=== PATIENT | male | born 1955 | race Caucasian/White ===

== ENCOUNTER 2024-05-07 20:22 | Observation (INO) | payer OTHER ==
[~2024-05-07] VITALS: Ht 177.8 cm; Wt 86.2 kg
[2024-05-07 20:40] LABS: BASOPHILS # (AUTO) 0.17 K/uL (0.00-0.20); BASOPHILS % (AUTO) 1.3 % (0.0-5.0); EOSINOPHILS # (AUTO) 0.53 K/uL (0.00-0.70); EOSINOPHILS % (AUTO) 3.9 % (0.0-8.0); HEMATOCRIT 49.3 % (42-54); IMMATURE GRANULOCYTE ABSOLUTE 0.05 K/uL (0-1); LYMPHOCYTES % (AUTO) 22.3 % (21.0-51.0); MEAN CORPUSCULAR HEMOGLOBIN 30.1 pg (27.0-33.0); MEAN CORPUSCULAR HGB CONC 33.3 g/dL (32.0-36.0); MEAN CORPUSCULAR VOLUME 90.5 fL (79-99); MONOCYTES # (AUTO) 1.2 K/uL (0.1-1.0); MONOCYTES % (AUTO) 8.6 % (3.0-13.0); NEUTROPHILS # (AUTO) 8.6 K/uL (1.8-7.7); NEUTROPHILS % (AUTO) 63.5 % (40.0-77.0); PLATELET COUNT (AUTO) 288 K/uL (130-400); RED BLOOD CELL COUNT(AUTO) 5.45 MIL/uL (4.50-6.20); RED CELL DISTRIBUTION WIDTH 14.2 % (11.0-15.5); WHITE BLOOD COUNT (AUTO) 13.5 K/uL (4.8-10.8)
[2024-05-07 20:50] LABS: CREATININE 1.2 mg/dL (0.5-1.3); POTASSIUM 3.6 mmol/L (3.5-5.1)
[2024-05-07 20:52] LABS: INR 1.01 (0.85-1.15); PROTHROMBIN TIME 10.9 SEC (9.6-11.6)
[2024-05-07 20:53] LABS: PARTIAL THROMBOPLASTIN TIME 29.9 SEC (26.3-35.5)
[2024-05-07 21:11] LABS: B-TYPE NATRIURETIC PEPTIDE 11 pg/mL (0-100)
--- NOTE | 2024-05-07 21:15 | ERN ---
General Chief Complaint: Chest Pain Stated Complaint: CHEST PAIN Time Seen by MD: 20:24 History of Present Illness Initial Comments Mr Locke is a 68-year-old male significant past medical history of tobacco abuse, hyperlipidemia, essential hypertension who comes in today with a chief complaint of chest pain. Patient reports the chest pain is over the center of his chest and goes down his left arm. Patient states that he has not noticed that activity or rest change the intensity of his pain. Patient states that when he sits up he feels slightly better. Allergies: Coded Allergies: No Known Drug Allergies (Unverified Allergy, Unknown, 05/07/24) Past Medical History Past Medical History: Other Medical History Other: PINCHED NERVE IN NECK Past Surgical History: None ROS Dictation Constitutional: Negative for fever,chills, and weight loss Eyes: Negative for injury, pain,redness, and discharge ENT: Negative for injury,pain or swelling Cardiovascular: Positive for chest pain Respiratory: Negative for shortness of breath, cough, and wheezing, Abdomen/GI: Negative for abdominal pain, nausea, vomiting, diarrhea, and constipation Back: Negative for injury and pain : Negative for injury, bleeding and discharge MS/Extremity: Negative for injury and deformity Skin: Negative for rash, and discoloration Neuro: Negative for headache, weakness, numbness, tingling, and seizure Psych: Negative for suicide ideation, homicidal ideation, and hallucinations Physical Exam Physical Exam Dictation General: awake, alert, NAD Head/Face: Normocephalic, atraumatic Eyes: PERRL, EOMI, vision at baseline ENT: oral cavity clear, Neck: Trachea midline, supple Cardiovascular: RRR, normal S1/S2, No MRGs, no JVD Respiratory: CTAB, no respiratory distress, No rales or wheezes Abdomen: Soft, non-tender, non-distended, normal bowel sounds Skin: Warm, dry, normal turgor, no rash MS/Extremity: Pulses equal, no cyanosis, neurovascular intact, FROM Neuro: COAx4, GCS 15, strength 5/5 Results Laboratory and Microbiology Lab and Micro Result Laboratory Tests Test 05/07/24 20:32 05/07/24 21:33 White Blood Count 13.5 K/uL (4.8-10.8) H Red Blood Count 5.45 MIL/uL (4.50-6.20) Hemoglobin 16.4 g/dL (14.0-18.0) Hematocrit 49.3 % (42-54) Mean Corpuscular Volume 90.5 fL (79-99) Mean Corpuscular Hemoglobin 30.1 pg (27.0-33.0) Mean Corpuscular Hemoglobin Concent 33.3 g/dL (32.0-36.0) Red Cell Distribution Width 14.2 % (11.0-15.5) Platelet Count 288 K/uL (130-400) Mean Platelet Volume 9.1 fL (7.5-10.5) Immature Granulocyte % (Auto) 0.4 % (0-1) Neutrophils (%) (Auto) 63.5 % (40.0-77.0) Lymphocytes (%) (Auto) 22.3 % (21.0-51.0) Monocytes (%) (Auto) 8.6 % (3.0-13.0) Eosinophils (%) (Auto) 3.9 % (0.0-8.0) Basophils (%) (Auto) 1.3 % (0.0-5.0) Neutrophils # (Auto) 8.6 K/uL (1.8-7.7) H Lymphocytes # (Auto) 3.0 K/uL (1.0-4.8) Monocytes # (Auto) 1.2 K/uL (0.1-1.0) H Eosinophils # (Auto) 0.53 K/uL (0.00-0.70) Basophils # (Auto) 0.17 K/uL (0.00-0.20) Absolute Immature Granulocyte (auto 0.05 K/uL (0-1) Nucleated Red Blood Cells 0.0 % (0.0-0.19) Prothrombin Time 10.9 SEC (9.6-11.6) Prothromb Time International Ratio 1.01 (0.85-1.15) Activated Partial Thromboplast Time 29.9 SEC (26.3-35.5) Sodium Level 136 mmol/L (136-145) Potassium Level 3.6 mmol/L (3.5-5.1) Chloride Level 102 mmol/L (101-111) Carbon Dioxide Level 28 mmol/L (21-32) Blood Urea Nitrogen 12 mg/dL (7-18) Creatinine 1.2 mg/dL (0.5-1.3) Glomerular Filtration Rate Calc 69 mL/min (>90) Random Glucose 124 mg/dL (70-105) H Total Calcium 9.0 mg/dL (8.5-10.1) Troponin I High Sensitivity 15 ng/L (4-75) B-Type Natriuretic Peptide 11 pg/mL (0-100) Troponin I < 0.05 ng/mL (0.00-0.05) MDM Patient will be admitted for chest pain rule out. Patient is an observation MDM: Differential diagnosis: Chest pain Rationale: Tests considered and ordered secondary to shared decision making include: labs, ECG and radiology Previous outside records reviewed: Old ER visits. Risk of complication and/or morbidity or mortality of patient management: None Medications-Per medication reconciliation Need for hospitalization: Patient does meet criteria for hospitalization. Need for emergency major/minor surgery: No There are no social concerns with this patient. Prescription drug management Prescriptions will include symptomatic care Patient's prior external medical records from other ER visits were reviewed by me as indicated. Prior testing and results from previous visits were reviewed. Prior tests were taken into account with medical decision making and resource utilization, independent historian/historians were used to obtain complete medical history. I independently interpreted the test that were performed, results were reviewed by me and considered findings on radiology if ordered. Medical management and examination interpretation discussions were had by me with other qualified healthcare professionals as indicated for the patient's care. ED Course Orders Procedure Category Date Status Time Cbc With Differential LAB 05/07/24 Complete 20:24 Basic Metabolic Panel LAB 05/07/24 Complete 20:24 B-Type Natriuretic LAB 05/07/24 Complete Peptide 20:24 Troponin I High LAB 05/07/24 Complete Sensitivity 20:24 12 Lead Ekg Tracing- EKG 05/07/24 Logged Technical 20:24 Chest 1vw RAD 05/07/24 Taken 20:24 Pt And Ptt LAB 05/07/24 Complete 20:24 Nitroglycerin 1gm PHA 05/07/24 Complete Oint (Nitroglycerin 1g 21:30 Morphine 4mg Syg PHA 05/07/24 Complete (Morphine 4mg Syg) 21:30 Aspirin 325mg Tab PHA 05/07/24 Complete (Aspirin 325mg Tab) 21:30 Troponin Poc Order LAB 05/07/24 Complete Only 21:06 Current Medications Medications (Trade) Dose Ordered Sig/Kenzie Route PRN Reason Start Time Stop Time Status Last Admin Dose Admin Aspirin (Aspirin 325mg Tab) 325 mg ONCE ONCE PO 05/07/24 21:30 05/07/24 21:31 DC 05/07/24 21:16 Morphine Sulfate (morPHINE 4MG SYG) 4 mg ONCE ONCE IVP 05/07/24 21:30 05/07/24 21:31 DC 05/07/24 21:16 Nitroglycerin (Nitroglycerin 1gm Oint) 1 inch ONCE ONCE TD 05/07/24 21:30 05/07/24 21:31 DC 05/07/24 21:16 Vital Signs Date Time Temp Pulse Resp B/P (MAP) Pulse Ox O2 Delivery O2 Flow Rate FiO2 05/07/24 20:39 98.4 82 19 162/87 97 Room Air* 0 21 DX & DISP Disposition: Inpatient Departure Impression: Primary Impression: Chest pain Condition: Stable Referrals: JEWELL JERRY MD (PCP) BRIAN LEE MD May 07, 2024 21:14
[2024-05-07] MEDS: morPHINE 4 MG SYG IVP ONE (21:16)
[2024-05-07] MEDS: ASPIRIN 325MG TAB PO ONE (21:16)
[2024-05-07] MEDS: NITROGLYCERIN 1GM OINT 1 INCH/1GM TD ONE (21:16)
[2024-05-07] MEDS ORDERED: LAbetaLOL 20MG SYG IV PRN (22:30)
[2024-05-07] MEDS ORDERED: ALBUTEROL 0.083% 2.5 MG/3 ML INH IH PRN (22:30)
[2024-05-07] MEDS ORDERED: TEMAZepam 15 MG CAPSULE PO PRN (22:30)
[2024-05-07] MEDS ORDERED: cloNIDine HCL 0.1 MG TABLET PO PRN (22:30)
[2024-05-07] MEDS ORDERED: LACTULOSE 20 GM/30 ML UDCUP PO PRN (22:30)
[2024-05-07] MEDS ORDERED: MELATONIN 5 MG TABLET PO PRN (22:30)
[2024-05-07] MEDS ORDERED: morPHINE 2 MG SYG IVP PRN (22:30)
--- NOTE | 2024-05-07 22:40 | NUR ---
PATIENT REPORTS HE DOES NOT TAKE ANY PRESCRIBED MEDICATIONS
[2024-05-07] MEDS: MAG/ALUM/SIMETH 30 ML UDCUP PO ONE (22:47)
[2024-05-07 23:30] VITALS: BP 122/66; PULSE 64; RESP 20; TEMP 97.8
[2024-05-07 23:37] VITALS: PULSE 85; RESP 20; O2SAT 96
--- NOTE | 2024-05-08 | NUR ---
ADMIT/REFUSAL Patient admitted from ER, vitals stable. States he lives at home with daughter. Educated on importance of smoking cessation, patient responded " I already said Wanda been smoking for 54 years and Im not quitting! Stop asking me the same damn questions!" Refused to wear yellow nonslip socks. Refused to put on hospital gown. Security called to picking supervisor cigarettes and neighborhood worker, patient only gave neighborhood worker to security. Call light within reach. Fall precautions in place.
--- NOTE | 2024-05-08 | NUR ---
PAGE Paged Genny Hanna Np regarding Critical D Dimer [id number]. Pending call back.
--- NOTE | 2024-05-08 | NUR ---
NURSING OBSERVATION/ BEHAVIOR SPOKE WITH PT REGARDING MANAGER DEVELOPMENT AND CIGARETTES, INFORMED IT IS A SAFETY ISSUE, PT RESPONDED " HERE IS THE FUCKING MANAGER DEVELOPMENT" AND GAVE ME THE MANAGER DEVELOPMENT AND LEFT ROOM. MANAGER DEVELOPMENT WAS HANDED TO SECURITY.
[2024-05-08 00:45] VITALS: O2SAT 98
--- NOTE | 2024-05-08 01:05 | NUR ---
per FLORECITA Batista pt refusing exam until AM//will let ordering physician know
--- NOTE | 2024-05-08 01:15 | NUR ---
REFUSAL Patient refusing STAT CT chest PE protocol due to critical D Dimer , explained to patient risks of delaying treatment. Continues to refuse. Paged Dez AhnTree Worker to notify of patient refusing STAT CT chest until the morning.
[2024-05-08 01:34] LABS: AMPHET/METH SCREEN,URINE NEGATIVE (NEGATIVE); BARBITURATE SCREEN, URINE NEGATIVE (NEGATIVE); BENZODIAZEPINES SCREEN,URINE NEGATIVE (NEGATIVE); CANNABINOID SCREEN,URINE NEGATIVE (NEGATIVE); COCAINE SCREEN,URINE NEGATIVE (NEGATIVE); OPIATE SCREEN,URINE NEGATIVE (NEGATIVE); PHENCYCLIDINE SCREEN,URINE NEGATIVE (NEGATIVE)
[2024-05-08 02:48] LABS: BASOPHILS # (AUTO) 0.16 K/uL (0.00-0.20); BASOPHILS % (AUTO) 1.1 % (0.0-5.0); EOSINOPHILS # (AUTO) 0.52 K/uL (0.00-0.70); EOSINOPHILS % (AUTO) 3.6 % (0.0-8.0); HEMATOCRIT 46.1 % (42-54); IMMATURE GRANULOCYTE ABSOLUTE 0.06 K/uL (0-1); LYMPHOCYTES # (AUTO) 3.3 K/uL (1.0-4.8); LYMPHOCYTES % (AUTO) 23.2 % (21.0-51.0); MEAN CORPUSCULAR HEMOGLOBIN 30.4 pg (27.0-33.0); MEAN CORPUSCULAR HGB CONC 33.2 g/dL (32.0-36.0); MEAN CORPUSCULAR VOLUME 91.5 fL (79-99); MONOCYTES # (AUTO) 1.4 K/uL (0.1-1.0); MONOCYTES % (AUTO) 9.9 % (3.0-13.0); NEUTROPHILS # (AUTO) 8.8 K/uL (1.8-7.7); NEUTROPHILS % (AUTO) 61.8 % (40.0-77.0); PLATELET COUNT (AUTO) 283 K/uL (130-400); RED BLOOD CELL COUNT(AUTO) 5.04 MIL/uL (4.50-6.20); RED CELL DISTRIBUTION WIDTH 14.1 % (11.0-15.5); WHITE BLOOD COUNT (AUTO) 14.3 K/uL (4.8-10.8)
[2024-05-08 02:57] LABS: CREATININE 1.1 mg/dL (0.5-1.3); HEMOGLOBIN A1C 5.5 % (4.0-6.0); POTASSIUM 4.2 mmol/L (3.5-5.1)
[2024-05-08 03:10] LABS: MAGNESIUM 2.1 mg/dL (1.80-2.40); PHOSPHORUS 3.3 mg/dL (2.5-4.9); THYROID STIMULATING HORMONE 5.36 uIU/mL (0.36-3.74)
--- NOTE | 2024-05-08 03:48 | EKG ---
[facility] Test Date: 2024-05-08 Test Time: 03:46:43 Pat Name: MAURISIO DANIELS Department: [facility] Room: 424 1 Gender: M Site Safety Manager: [id number] : 1955 Requested By: VIKA GRUBBS Order Number: [id number] Reading MD: Vika Kincaid Measurements Intervals [place] Rate: 74 P: 46 VT: 182 QRS: 45 QRSD: 84 T: 112 QT: 378 QTc: 419 Interpretive Statements Normal sinus rhythm Nonspecific T wave abnormality No previous ECG available for comparison Electronically Signed On 05-08-2024 15:12:59 LAST TURNER by Vika Kincaid Please click the below link to view image of tracing.
[2024-05-08 04:00] VITALS: BP 112/77; PULSE 73; RESP 20; TEMP 98.2
[2024-05-08] MEDS: acetaMINOPHEN 325 MG TAB PO PRN (05:50)
[2024-05-08] MEDS: ENOXAPARIN SODIUM 40 MG/0.4 ML SYRINGE SQ ONE (06:09)
--- NOTE | 2024-05-08 06:09 | NUR ---
REFUSAL Refused Lovenox injection, educated patient on reason of this order was due to elevated D Dimer and medications uses and side effects. Patient slammed call light on bedside table and stated, " No there is nothing wrong with me and I am about to get up out of here and go home!" Patient continued to refuse.
--- NOTE | 2024-05-08 07:01 | EKG ---
[facility] Test Date: 2024-05-07 Test Time: 20:16:55 Pat Name: MAURISIO DANIELS Department: [facility] Room: 424 1 Gender: M Ship'S Engineer: [id number] : 1955 Requested By: BRIAN LEE Order Number: [id number] Reading MD: Dez Kincaid Measurements Intervals [place] Rate: 82 P: 2 MI: 148 QRS: 69 QRSD: 83 T: 172 QT: 344 QTc: 402 Interpretive Statements Sinus rhythm No previous ECG available for comparison Electronically Signed On 05-08-2024 15:12:57 SUPERVISOR WORD PROCESSING by Dez Kincaid Please click the below link to view image of tracing.
--- NOTE | 2024-05-08 07:10 | NUR ---
AMA Patient left against medical advice,Patient came out of room demanding for nurse to remove IV. Notified housekeeper/custodian/laundry worker. Nurse discussed risks and possible . Patient stated 'Yes I already know." IV removed. Telemetry pack removed.
--- NOTE | 2024-05-08 07:14 | NUR ---
Paged [employer] regarding AMA.
--- NOTE | 2024-05-08 08:41 | HMCIMG ---
CHEST 1VW REASON: CP COMPARISON: None. FINDINGS: Single view of the chest was obtained. Lungs are clear. Heart size is normal. There is no pulmonary vascular congestion. Mediastinum and bony thorax appear unremarkable. IMPRESSION: 1. Normal single view chest x-ray.
[2024-05-08] MEDS ORDERED: PANTOPrazole 40 MG TAB DR PO SCH (09:00)
[2024-05-08] MEDS ORDERED: ASPIRIN 81MG CHEW TAB PO SCH (09:00)
--- NOTE | 2024-05-08 18:38 | HP ---
History of Present Illness History of Present Illness patient left AMA before being physically assessed. Past Medical History ADDITIONAL PAST MEDICAL HISTORY: [] SOCIAL HISTORY: [] SURGICAL HISTORY: [] Review of Systems Allergies: Coded Allergies: No Known Drug Allergies (Unverified Allergy, Unknown, 05/07/24) Exam Vital Signs Vital Signs Date Time Temp Pulse Resp B/P (MAP) Pulse Ox O2 Delivery O2 Flow Rate FiO2 05/08/24 04:00 98.2 73 20 112/77 94 Room Air 05/08/24 00:45 0 21 Assessment/Plan ASSESSMENT: [] PLAN: [] MASOOD PALENCIA May 08, 2024 18:38
--- NOTE | 2024-05-08 18:49 | DS ---
[facility] DISCHARGE SUMMARY Date Patient Seen: May 08, 2024 Time of Visit: 18:38 Supervising Physician: [Dr. Rudd] Primary Care Physician: [JEWELL JERRY MD] Outpatient Specialists: [ ] Inpatient Consults: [ ] PROBLEM LIST: Chest pain Elevated D-dimer Leukocytosis Elevated WBC HOSPITAL COURSE: HPI (per admitting provider) Mr Locke is a 68-year-old male significant past medical history of tobacco abuse, hyperlipidemia, essential hypertension who comes in today with a chief complaint of chest pain. Patient reports the chest pain is over the center of his chest and goes down his left arm. Patient states that he has not noticed that activity or rest change the intensity of his pain. Patient states that when he sits up he feels slightly better. His lab showed leukocytosis of 14, TSH elevation to 5.36. Troponin and EKG were unremarkable. Per nursing staff patient was rude, was refusing CTA and was wanting to remove his IV. He eventually left AMA before I was able to evaluate him. Pt hemodynamically stable and afebrile at time of discharge. PCP notified of patients admission, hospital course and discharge. PHYSICAL EXAM: Unable to assess This case was seen and discussed with my supervising physician. More than 30 minutes spent on discharge process, including evaluation of the patient, discussion with nursing staff, medication reconciliation and follow-up appointments MASOOD PALENCIA May 08, 2024 18:49
[2024-05-08] MEDS ORDERED: atorVAStatin 40 MG TABLET PO SCH (21:00)
== END 2024-05-08 07:00 | disposition left against medical advice (07) ==
LOC: EDH 20:22 → EDBD 20:22 → EDHIP 22:23 → INTOOBSV 22:23 → OBSVTOIN 22:23 → 4DH 23:11
PROVIDERS: ADMIT Internal Medicine Critical Care Medicine; ATTEND Internal Medicine Critical Care Medicine
DX: R07.9 Chest pain, unspecified (principal); R79.89 Other specified abnormal findings of blood chemistry; D72.829 Elevated white blood cell count, unspecified; E78.5 Hyperlipidemia, unspecified; I10 Essential (primary) hypertension; Z87.891 Personal history of nicotine dependence; Z79.899 Other long term (current) drug therapy
CPT/HCPCS: 96374; 99285; 84484 ×3; 80048 ×2; 83880; 80305; 85025 ×2; 85378; 85610; 85730; 36415 ×2; 71045; 93005 ×2; 94664; 83036; 84443; 83735; 84100; 80061; G0378 ×9; J2270; J1650

== ENCOUNTER 2024-05-11 05:32 | Inpatient (IN) | payer OTHER ==
[2024-05-11] VITALS (13 sets, daily range): BP systolic 121–151; BP diastolic 70–95; PULSE 64–80; RESP 16–22; TEMP 97.7–98.7; O2SAT 95–98
[~2024-05-11] VITALS: Ht 177.8 cm; Wt 83.3 kg
--- NOTE | 2024-05-11 05:44 | EKG ---
[facility] Test Date: 2024-05-11 Test Time: 05:26:05 Pat Name: MAURISIO DANIELS Department: ED Room: 222 Gender: M Case Mgr: lois : 1955 Requested By: JARRED PAZ Order Number: [id number] Reading MD: Tangela Quintero Measurements Intervals [place] Rate: 78 P: 31 OR: 149 QRS: 69 QRSD: 79 T: 44 QT: 369 QTc: 420 Interpretive Statements Sinus rhythm Low voltage, extremity leads Borderline ST depression, anterior leads Compared to ECG 05/08/2024 03:46:43 Low QRS voltage now present ST (T wave) deviation now present T-wave abnormality no longer present Electronically Signed On 05-13-2024 11:33:26 PROPERTY SUPERVISOR by Tangela Quintero Please click the below link to view image of tracing.
--- NOTE | 2024-05-11 05:45 | NUR ---
REPORT TO DR PAZ, MADE AWARE OF ELEVATED D DIMER, REFUSAL OF STAT CT PE PROTOCOL AND LEAVING AMA 05/08/24
--- NOTE | 2024-05-11 05:46 | NUR ---
PER EMR, PT LEFT AMA 05/08/24
[2024-05-11 05:47] LABS: BASOPHILS # (AUTO) 0.17 K/uL (0.00-0.20); BASOPHILS % (AUTO) 1.3 % (0.0-5.0); EOSINOPHILS # (AUTO) 0.72 K/uL (0.00-0.70); EOSINOPHILS % (AUTO) 5.3 % (0.0-8.0); HEMATOCRIT 53.5 % (42-54); IMMATURE GRANULOCYTE ABSOLUTE 0.04 K/uL (0-1); LYMPHOCYTES # (AUTO) 3.5 K/uL (1.0-4.8); LYMPHOCYTES % (AUTO) 25.6 % (21.0-51.0); MEAN CORPUSCULAR HEMOGLOBIN 29.9 pg (27.0-33.0); MEAN CORPUSCULAR HGB CONC 33.5 g/dL (32.0-36.0); MEAN CORPUSCULAR VOLUME 89.3 fL (79-99); MONOCYTES # (AUTO) 1.5 K/uL (0.1-1.0); MONOCYTES % (AUTO) 10.9 % (3.0-13.0); NEUTROPHILS # (AUTO) 7.7 K/uL (1.8-7.7); NEUTROPHILS % (AUTO) 56.6 % (40.0-77.0); PLATELET COUNT (AUTO) 311 K/uL (130-400); RED BLOOD CELL COUNT(AUTO) 5.99 MIL/uL (4.50-6.20); WHITE BLOOD COUNT (AUTO) 13.5 K/uL (4.8-10.8)
--- NOTE | 2024-05-11 05:52 | ERN ---
General Chief Complaint: Chest Pain Stated Complaint: CHEST PAIN, SOB Time Seen by MD: 05:34 Source: patient History of Present Illness Initial Comments PATIENT IS A 68-YEAR-OLD MALE COMING IN TO BE EVALUATED FOR CHEST PAIN. PATIENT STATES THAT HE HAS HAD CHEST PAIN ON AND OFF FOR SOME TIME WAS EVALUATED AT ER AND WAS TOLD THAT HE HAS CORONARY ARTERY DISEASE. Allergies: Coded Allergies: No Known Drug Allergies (Unverified Allergy, Unknown, 05/07/24) Past Medical History Past Medical History: Other Medical History Other: PINCHED NERVE IN NECK Past Surgical History: Cholecystectomy ROS Dictation CONSTITUTIONAL: NO CHILLS, NO FEVER, NO WEAKNESS, NO DIAPHORESIS, NO MALAISE. HEAD/FACE: NO SIGNS OF TRAUMA. EENT: NO EYE PAIN, NO BLURRED VISION, NO TEARING, NO DOUBLE VISION, NO EAR PAIN, NO EAR DISCHARGE, NO NOSE PAIN, NO NASAL CONGESTION, NO THROAT PAIN, NO THROAT SWELLING, NO MOUTH PAIN. RESPIRATORY: NO COUGH, NO ORTHOPNEA, NO SOB, NO STRIDOR, NO WHEEZING. CARDIOVASCULAR: CHEST PAIN, NO EDEMA, NO PALPITATIONS, NO SYNCOPE. GASTROINTESTINAL/ABDOMINAL: NO ABDOMINAL PAIN, NO CONSTIPATION, NO DIARRHEA, NO NAUSEA, NO VOMITING. GENITOURINARY: NO ABNORMAL DISCHARGE, NO DYSURIA, NO FREQUENT URINATION, NO HEMATURIA. NO COMPLAINTS OF PAIN IN THE GENITALS. MUSCULOSKELETAL: NO BACK PAIN, NO GOUT, NO JOINT PAIN, NO JOINT SWELLING, NO MUSCLE PAIN, NO MUSCLE STIFFNESS, NO NECK PAIN. INTEGUMENTARY: NO CHANGE IN COLOR, NO CHANGE IN HAIR/NAILS, NO DRYNESS, NO LESION, NO LUMPS, NO RASH. NEUROLOGICAL/PSYCH: NO ANXIETY, NOT DEPRESSED, NO EMOTIONAL PROBLEM, NO HEADACHE, NO NUMBNESS, NO PRE-EXISTING DEFICIT, NO HISTORY OF SEIZURES, NO TR EMORS, NO WEAKNESS. HEMATOLOGIC/LYMPHATIC: NOT ANEMIC, NO HISTORY OF BLOOD CLOTS, NO APPARENT BLEEDING, NO BRUISING, GLANDS NOT SWOLLEN. ALL SYSTEMS NEGATIVE, EXCEPT NOTED. Physical Exam Physical Exam Dictation VITAL SIGNS: REVIEWED. GENERAL APPEARANCE: ALERT, ORIENTED X3, NO ACUTE DISTRESS, OBESE. HEAD AND FACE: NON-TRAUMATIC. EYES: PERRL, PINK CONJUNCTIVAS, EYELID NO TRAUMA, ANTERIOR CHAMBER CLEAR. EARS: PINNAS INTACT AND NO SIGNS OF TRAUMA OR ERYTHEMA. EAR CANALS CLEAR AND NO DISCHARGE. TMS NO ERYTHEMA. NOSE: NO DISCHARGE, NO BLEEDING. OROPHARYNX: MOUTH NORMAL, TEETH NO CARIES, TONGUE PINK. PHARYNX CLEAR, NO ERYTHEMA. TONSILS NO EXUDATES, NO ABSCESSES NOTED. MUCOUS MEMBRANE MOIST. NECK: SUPPLE, NON-TENDER, NO THYROMEGALY, NO MASSES, NO JVD, NO BRUITS. BREAST: DEFERRED. CHEST: TENDERNESS, NO CREPITUS, NO PARADOXICAL MOVEMENT, NO RETRACTIONS. LUNGS: CLEAR, WELL-VENTILATED, SYMMETRIC, NO RALES, NO WHEEZING, NO RHONCHI, NO STRIDOR, GOOD BREATH SOUNDS BILATERALLY. HEART: REGULAR RATE, REGULAR RHYTHM, NO MURMUR, NO GALLOPS. VASCULAR: NO PERIPHERAL EDEMA. ABDOMEN: SOFT, POSITIVE BOWEL SOUNDS, NONDISTENDED, NO GUARDING, NONTENDER, NO REBOUND, NO MASSES NO HEPATOMEGALY, NO SPLENOMEGALY, NO HORNER'S SIGN, NO HERNIAS. RECTAL: DEFERRED. GENITAL: DEFERRED. NEUROLOGICAL: NORMAL SPEECH, GROSS MOTOR FUNCTION INTACT, GROSS SENSORY F UNCTION INTACT. MUSCULOSKELETAL: NECK NONTENDER, FULL RANGE OF MOTION, BACK NONTENDER, FULL RANGE OF MOTION. EXTREMITIES: NONTENDER, FULL RANGE OF MOTION. SKIN: COLOR PINK, DRY, NO TURGOR, NO RASH, NO LACERATIONS, NO ABRASIONS, NO CONTUSIONS. LYMPHATICS: DEFERRED. Results Laboratory and Microbiology Lab and Micro Result Laboratory Tests Test 05/11/24 05:40 White Blood Count 13.5 K/uL (4.8-10.8) H Red Blood Count 5.99 MIL/uL (4.50-6.20) Hemoglobin 17.9 g/dL (14.0-18.0) Hematocrit 53.5 % (42-54) Mean Corpuscular Volume 89.3 fL (79-99) Mean Corpuscular Hemoglobin 29.9 pg (27.0-33.0) Mean Corpuscular Hemoglobin Concent 33.5 g/dL (32.0-36.0) Red Cell Distribution Width 14.0 % (11.0-15.5) Platelet Count 311 K/uL (130-400) Mean Platelet Volume 9.1 fL (7.5-10.5) Immature Granulocyte % (Auto) 0.3 % (0-1) Neutrophils (%) (Auto) 56.6 % (40.0-77.0) Lymphocytes (%) (Auto) 25.6 % (21.0-51.0) Monocytes (%) (Auto) 10.9 % (3.0-13.0) Eosinophils (%) (Auto) 5.3 % (0.0-8.0) Basophils (%) (Auto) 1.3 % (0.0-5.0) Neutrophils # (Auto) 7.7 K/uL (1.8-7.7) Lymphocytes # (Auto) 3.5 K/uL (1.0-4.8) Monocytes # (Auto) 1.5 K/uL (0.1-1.0) H Eosinophils # (Auto) 0.72 K/uL (0.00-0.70) H Basophils # (Auto) 0.17 K/uL (0.00-0.20) Absolute Immature Granulocyte (auto 0.04 K/uL (0-1) Nucleated Red Blood Cells 0.0 % (0.0-0.19) Prothrombin Time 10.9 SEC (9.6-11.6) Prothromb Time International Ratio 1.01 (0.85-1.15) Sodium Level 140 mmol/L (136-145) Potassium Level 4.0 mmol/L (3.5-5.1) Chloride Level 104 mmol/L (101-111) Carbon Dioxide Level 25 mmol/L (21-32) Blood Urea Nitrogen 16 mg/dL (7-18) Creatinine 1.1 mg/dL (0.5-1.3) Glomerular Filtration Rate Calc 74 mL/min (>90) Random Glucose 119 mg/dL (70-105) H Total Calcium 9.2 mg/dL (8.5-10.1) Magnesium Level 2.20 mg/dL (1.80-2.40) Total Creatine Kinase 216 U/L (21-232) Troponin I High Sensitivity 11 ng/L (4-75) B-Type Natriuretic Peptide 11 pg/mL (0-100) Labs Reviewed?: Yes EKG/XRAY/US/CT/MRI EKG Comment 05/11/2024 TIME 5:26 A.M. VENTRICULAR RATE 78 SINUS RHYTHM DC 149 T-WAVE INVERSION V1 V2 V3 MDM MDM: DIFFERENTIAL DIAGNOSIS: CHEST PAIN, CAD, ACS, RATIONALE: TESTS CONSIDERED AND ORDERED SECONDARY TO SHARED DECISION MAKING IN CLUDE: LABS, ECG AND RADIOLOGY PREVIOUS OUTSIDE RECORDS REVIEWED: OLD ER VISITS. RISK OF COMPLICATION AND/OR MORBIDITY OR MORTALITY OF PATIENT MANAGEMENT: NONE MEDICATIONS-PER MEDICATION RECONCILIATION NEED FOR HOSPITALIZATION: PATIENT DOES MEET CRITERIA FOR HOSPITALIZATION. NEED FOR EMERGENCY MAJOR/MINOR SURGERY: NO THERE ARE NO SOCIAL CONCERNS WITH THIS PATIENT. PRESCRIPTION DRUG MANAGEMENT PRESCRIPTIONS WILL INCLUDE SYMPTOMATIC CARE PATIENT'S PRIOR EXTERNAL MEDICAL RECORDS FROM OTHER ER VISITS WERE REVIEWED BY ME INDICATED. PRIOR TESTING AND RESULTS FROM PREVIOUS VISITS WERE REVIEWED. PRIOR TESTS WERE TAKEN INTO ACCOUNT WITH MEDICAL DECISION MAKING AND RESOURCE UTILIZATION, INDEPENDENT HISTORIAN/HISTORIANS WERE USED TO OBTAIN COMPLETE MEDICAL HISTORY. I INDEPENDENTLY INTERPRETED THE TEST THAT WERE PERFORMED, RESULTS WERE REVIEWED BY ME AND CONSIDERED FINDINGS ON RADIOLOGY IF ORDERED. MEDICAL MANAGEMENT AND EXAMINATION INTERPRETATION DISCUSSIONS WERE HAD BY ME WITH OTHER QUALIFIED HEALTHCARE PROFESSIONALS INDICATED FOR THE PATIENT'S CARE. ED Course Orders Procedure Category Date Status Time Cbc With Differential LAB 05/11/24 Complete 05:34 Prothrombin Time With LAB 05/11/24 Complete INR 05:34 B-Type Natriuretic LAB 05/11/24 Complete Peptide 05:34 Chest 1vw RAD 05/11/24 Taken 05:34 12 Lead Ekg Tracing- EKG 05/11/24 Complete Technical 05:34 Magnesium LAB 05/11/24 Complete 05:34 Creatine Kinase, Total LAB 05/11/24 Complete 05:34 Troponin I High LAB 05/11/24 Complete Sensitivity 05:34 Urinalysis Profile LAB 05/11/24 Logged 05:34 Basic Metabolic Panel LAB 05/11/24 Complete 05:34 Drug Screen Urine LAB 05/11/24 Logged 05:34 Covid Rna Naat LAB 05/11/24 Logged 05:38 Influenza Type A & B, LAB 05/11/24 Logged Rapid 05:38 Nitroglycerin 0.4mg PHA 05/11/24 In Process Sl Tab (Nitrostat) 06:[address] 05/11/24 Taken 06:18 Acetaminophen 500mg PHA 05/11/24 Complete Tab (Tylenol 500mg T 06:30 Iohexol (Omnipaque) PHA 05/11/24 Complete 06:57 Ondansetron 4mg Inj PHA 05/11/24 Complete (Zofran 4mg Inj) 07:30 Morphine 2mg Syg PHA 05/11/24 Complete (Morphine 2mg Syg) 07:30 Ondansetron 4mg Inj PHA 05/11/24 Complete (Zofran 4mg Inj) 07:32 Morphine 2mg Syg PHA 05/11/24 Complete (Morphine 2mg Syg) 07:32 Troponin I High LAB 05/11/24 Logged Sensitivity 07:57 Hydralazine 20mg Inj PHA 05/11/24 In Process (Apresoline 20mg In 08:00 Metoprolol Tartrate PHA 05/11/24 In Process (Lopressor) 08:30 Initiate Heparin VICTORINO 05/11/24 In Process Treatment Pro 08:04 Partial LAB 05/11/24 Transmitted Thromboplastin Time 08:04 Heparin 5,000 Unit PHA 05/11/24 In Process Vial (Heparin 5,000 U 09:00 Heparin 25,000 PHA 05/11/24 In Process Units/250ml D5w 09:00 Heparin Protocol CPOE 05/11/24 Transmitted Monitoring 08:04 Ticagrelor (Brilinta) PHA 05/11/24 Transmitted 08:30 Current Medications Medications (Trade) Dose Ordered Sig/Kenzie Route PRN Reason Start Time Stop Time Status Last Admin Dose Admin Acetaminophen (TYLenol 500MG TAB) 1,000 mg ONCE ONCE PO 05/11/24 06:30 05/11/24 06:31 DC 05/11/24 06:49 Heparin Sodium (Porcine) (HEParin 5,000 UNIT VIAL) *calculation based on ACTUAL B... AD PRN IV HEPARIN PROTOCOL 05/11/24 09:00 06/10/24 08:59 Heparin Sodium/ Dextrose 250 ml @ 0 mls/hr Q6H IV 05/11/24 09:00 06/10/24 08:59 Hydralazine HCl (APRESOLine 20MG INJ) 10 mg Q6H PRN IV ADMINISTER FOR SBP > 160 05/11/24 08:00 06/10/24 07:59 Iohexol (Omnipaque) 75 ml STK-MED ONCE IV 05/11/24 06:57 05/11/24 07:01 DC Metoprolol Tartrate (loprESSOR) 5 mg ONCE ONCE IV 05/11/24 08:30 05/11/24 08:31 Morphine Sulfate (morPHINE 2MG SYG) 2 mg ONCE ONCE IVP 05/11/24 07:30 05/11/24 07:32 DC 05/11/24 07:33 Morphine Sulfate (morPHINE 2MG SYG) 2 mg STK-MED ONCE .ROUTE 05/11/24 07:32 05/11/24 07:36 DC Nitroglycerin (Nitrostat) 0.4 mg AD PRN SL CHEST PAIN 05/11/24 06:00 06/10/24 05:59 05/11/24 06:02 Ondansetron HCl (zoFRAN 4MG INJ) 4 mg ONCE ONCE IVP 05/11/24 07:30 05/11/24 07:31 DC 05/11/24 07:33 Ondansetron HCl (zoFRAN 4MG INJ) 4 mg STK-MED ONCE .ROUTE 05/11/24 07:32 05/11/24 07:36 DC Vital Signs Date Time Temp Pulse Resp B/P (MAP) Pulse Ox O2 Delivery O2 Flow Rate FiO2 05/11/24 07:27 70 16 163/94 98 Room Air* 0 05/11/24 05:57 97.9 80 18 117/65 99 Room Air* 0 05/11/24 05:33 97.5 75 24 165/87 99 Room Air DX & DISP Disposition: Inpatient Decision to Admit Date: May 11, 2024 Decision to Admit Time: 08:07 Departure Impression: Primary Impression: Chest pain Additional Impression: Angina at rest Condition: Stable Referrals: JEWELL JERRY MD (PCP) JARRED PAZ MD May 11, 2024 05:52 EVONNE SHELDON MD May 11, 2024 08:08
[2024-05-11 05:59] LABS: INR 1.01 (0.85-1.15); PROTHROMBIN TIME 10.9 SEC (9.6-11.6)
[2024-05-11] MEDS: NITROGLYCERIN 0.4 MG SL TAB SL PRN (06:02)
--- NOTE | 2024-05-11 06:03 | NUR ---
PATIENT REFUSED TO HAVE COVID AND FLU SWAB
--- NOTE | 2024-05-11 06:08 | NUR ---
PATIENT REFUSED TO HAVE THE 3RD NITRO TAB. HE IS RUDE TO STAFF, TOLD ME OFF 'YOU COME AND TAKE IT'
[2024-05-11 06:10] LABS: CREATININE 1.1 mg/dL (0.5-1.3); MAGNESIUM 2.2 mg/dL (1.80-2.40)
--- NOTE | 2024-05-11 06:18 | NUR ---
PATIENT REFUSED TO HAVE REGULAR TYLENOL, INFORMED DR PAZ- (AWARE) WILL WAIT FOR THE BLOOD TEST TO COME BACK PER DR PAZ PT BEING UTTERLY RUDE
[2024-05-11] MEDS: acetaMINOPHEN 500 MG TABLET PO ONE (06:25)
[2024-05-11 06:40] LABS: B-TYPE NATRIURETIC PEPTIDE 11 pg/mL (0-100)
[2024-05-11] MEDS ORDERED: IOHEXOL-350 75 ML VIAL IV ONE (06:57)
[2024-05-11] MEDS: morPHINE 2 MG SYG IVP ONE (07:33)
[2024-05-11] MEDS: ondanSETRON 4MG INJ IVP ONE (07:33)
[2024-05-11] MEDS: morPHINE 2 MG SYG ONE (07:37)
[2024-05-11] MEDS: ondanSETRON 4MG INJ ONE (07:38)
--- NOTE | 2024-05-11 07:52 | NUR ---
DR CRAWFORD CURRENTLY AT BEDSIDE
[2024-05-11] MEDS ORDERED: hydrALAZine 20MG/ML VIAL IV PRN (08:00)
[2024-05-11] MEDS: HEParin 5,000 UNIT VIAL IV PRN (08:17)
--- NOTE | 2024-05-11 08:19 | HMCIMG ---
CT ANGIO CHEST REASON: elevated ddimer TECHNIQUE: Thin axial images through the chest were obtained during bolus intravenous administration of 75 ml of Omnipaque 350. Sagittal and coronal reconstruction images were performed. FINDINGS: There is mild chronic lung disease, there is some compressive atelectasis in the lung bases, there is some minimal honeycombing peripherally in both upper lobes. There are a few subcentimeter nodules, all under 5 mm. There are some mild bronchial wall thickening as well. Contrast outlines normal appearing central pulmonary arteries. There is no CT evidence of PE. Aorta appears normal with no dissection or aneurysm. There is no hilar or mediastinal lymphadenopathy. Visualized upper abdominal structures appear unremarkable with the exception of absent gallbladder. IMPRESSION: 1. Mild emphysematous changes in both lungs. 2. No CT evidence of pulmonary embolism or aortic dissection. CT was performed with one or more following dose reduction techniques: automated exposure control, adjustment of the mA and kv according to patient's size, or use of a iterative reconstruction technique.
--- NOTE | 2024-05-11 08:25 | HMCIMG ---
CHEST 1VW REASON: CHEST COMPARISON: 05/07/2024 FINDINGS: Single view of the chest was obtained. Lungs are clear. Heart size is normal. There is no pulmonary vascular congestion. Mediastinum and bony thorax appear unremarkable. IMPRESSION: 1. Normal single view chest x-ray.
[2024-05-11] MEDS ORDERED: acetaMINOPHEN WITH coDEINE 1 TAB TAB PO PRN (08:30)
[2024-05-11] MEDS ORDERED: morPHINE 2 MG SYG IV PRN (08:30)
[2024-05-11] MEDS ORDERED: FAMOTIDINE 20MG VIAL IV PRN (08:30)
[2024-05-11] MEDS ORDERED: DiphenhydrAMINE HCL 50 MG/ML VIAL IV PRN (08:30)
[2024-05-11] MEDS: HEParin 25,000 UNITS/250ML D5W 250 ML IV SCH (08:30)
[2024-05-11] MEDS ORDERED: hydroMORPHone 1 MG INJ IV PRN (08:30)
[2024-05-11] MEDS ORDERED: ondanSETRON 4MG INJ IV PRN (08:30)
[2024-05-11] MEDS: TICAGrelor 90 MG TABLET PO SCH (08:58)
[2024-05-11] MEDS ORDERED: PoTASSium chl 10% ELIXIR 20MEQ 20 MEQ/15 ML UDCUP PO PRN (09:00)
[2024-05-11] MEDS ORDERED: DEXTROSE 50%-WATER 50 ML DISP.SYRIN IV PRN (09:00)
[2024-05-11] MEDS ORDERED: MAGNESIUM 2GM PREMIX 50ML 50 ML IV PRN (09:00)
[2024-05-11] MEDS ORDERED: PoTASSium chloRIDE 20MEQ ER 20 MEQ ERTAB PO PRN (09:00)
[2024-05-11] MEDS: 0.9%NACL 1000ML 1,000 ML IV SCH ×2 (09:00→13:25)
[2024-05-11] MEDS ORDERED: PoTASSium chloRIDE 20MEQ/100ML 100 ML IV PRN (09:00)
[2024-05-11] MEDS ORDERED: GLUCAGON 1MG KIT 1 MG ML IM PRN (09:00)
[2024-05-11] MEDS: metoPROLOL tartRATE 1 MG/ML 5ML VIAL IV ONE (09:01)
--- NOTE | 2024-05-11 09:12 | HP ---
[facility] HISTORY AND PHYSICAL Date of Service: May 11, 2024 Time of Service: 09:12 HISTORY OF PRESENT ILLNESS: 68 yr old male with no significant past medical history, patient was recently seen in ED on 05/08/24, with the same complaints he was reluctant to get further testing and left AMA. He has a h/o smoking for past 54 yrs 1 pack a day and marijuana use, comes to the ED with the complaints of chest pain and SOB since a week on and off. He describes pain shoulder-shoulder, constant non radiating, no significant increase in pain on palpation, no aggravating and relieving factors noted. In the ED he was treated with nitroglycerin of 3 doses and morphine 2 doses, still the pain was not controlled with elevated BP, though under control with 3rd dose of nitroglycerin. ECG Low voltage, extremity leads with Borderline ST depression, anterior leads. Initial troponin and bnp normal, 2nd troponin elevated to 3437. Chest x ray and cta chest noted - non significant, echo pending. DR Farris was informed of the condition. Patient initiated on ACS protocol with aspirin, atorvastatin, metoprolol, brillinta po and heparin iv. He will be admitted to pccu for further care. REVIEW OF SYSTEMS 12 point ROS negative unless noted in HPI PAST MEDICAL HISTORY: n/a PAST SURGICAL HISTORY: cholecystectomy PAST SOCIAL HISTORY: tobacco smoking 54yrs, marijuana use FAMILY HISTORY: n/a Coded Allergies: No Known Drug Allergies (Unverified Allergy, Unknown, 05/07/24) PHYSICAL EXAM GENERAL APPEARANCE: The patient is awake, alert, and oriented, in no acute cardiopulmonary distress. NEUROLOGICAL: Cranial nerves II-XII grossly intact. Motor is 5/5 in bilateral upper and lower extremities proximal to distal. No sensory deficits. HEENT: Face is symmetric. Pupils are equal and reactive. Extraocular movements are intact. NECK: Supple. No JVD. No thyromegaly. No submental, submandibular, pre- /postauricular, occipital or supraclavicular lymphadenopathy. CHEST: Normal chest expansion. Telemetry. LUNGS: Absence of any rales, rhonchi or any wheezing. CARDIOVASCULAR: Regular. S1 and S2 normal. No appreciable rubs, murmurs or gallops. ABDOMEN: Soft, nontender, and nondistended. There is no rebound, voluntary guarding, or rigidity. : Deferred. No Mullen. EXTREMITIES: Non-edematous and not cyanotic. No clubbing. Good capillary refill. SKIN: No skin breakdown. Vital Sign (Last 24 Hours) 05/11/24 05/11/24 05/11/24 05:57 07:27 09:01 Temp 97.9 Pulse 85 Resp 16 B/P (MAP) 163/94 Pulse Ox 98 O2 Delivery Room Air* O2 Flow Rate 0 FiO2 21 LABS: Laboratory: Test 05/11/24 08:26 05/11/24 05:40 Range/Units Activated Partial Thromboplast Time 30.9 26.3-35.5 SEC Troponin I High Sensitivity 3437 *H 4-75 ng/L White Blood Count 13.5 H 4.8-10.8 K/uL Red Blood Count 5.99 4.50-6.20 MIL/uL Hemoglobin 17.9 14.0-18.0 g/dL Hematocrit 53.5 42-54 % Mean Corpuscular Volume 89.3 79-99 fL Mean Corpuscular Hemoglobin 29.9 27.0-33.0 pg Mean Corpuscular Hemoglobin Concent 33.5 32.0-36.0 g/dL Red Cell Distribution Width 14.0 11.0-15.5 % Platelet Count 311 130-400 K/uL Mean Platelet Volume 9.1 7.5-10.5 fL Immature Granulocyte % (Auto) 0.3 0-1 % Neutrophils (%) (Auto) 56.6 40.0-77.0 % Lymphocytes (%) (Auto) 25.6 21.0-51.0 % Monocytes (%) (Auto) 10.9 3.0-13.0 % Eosinophils (%) (Auto) 5.3 0.0-8.0 % Basophils (%) (Auto) 1.3 0.0-5.0 % Neutrophils # (Auto) 7.7 1.8-7.7 K/uL Lymphocytes # (Auto) 3.5 1.0-4.8 K/uL Monocytes # (Auto) 1.5 H 0.1-1.0 K/uL Eosinophils # (Auto) 0.72 H 0.00-0.70 K/uL Basophils # (Auto) 0.17 0.00-0.20 K/uL Absolute Immature Granulocyte (auto 0.04 0-1 K/uL Nucleated Red Blood Cells 0.0 0.0-0.19 % Prothrombin Time 10.9 9.6-11.6 SEC Prothromb Time International Ratio 1.01 0.85-1.15 Sodium Level 140 136-145 mmol/L Potassium Level 4.0 3.5-5.1 mmol/L Chloride Level 104 101-111 mmol/L Carbon Dioxide Level 25 21-32 mmol/L Blood Urea Nitrogen 16 7-18 mg/dL Creatinine 1.1 0.5-1.3 mg/dL Glomerular Filtration Rate Calc 74 >90 mL/min Random Glucose 119 H 70-105 mg/dL Total Calcium 9.2 8.5-10.1 mg/dL Magnesium Level 2.20 1.80-2.40 mg/dL Total Creatine Kinase 216 21-232 U/L B-Type Natriuretic Peptide 11 0-100 pg/mL Current Medications Medications (Trade) Dose Ordered Sig/Kenzie Route PRN Reason Start Time Stop Time Status Last Admin Dose Admin Acetaminophen/ Codeine Phosphate (TYLenol-coDEINE TAB) 1 tab Q6H PRN PO MODERATE PAIN (4-6) 05/11/24 08:30 05/11/24 09:09 DC Acetaminophen/ Hydrocodone Bitart (NORco 5/325MG) 1 tab Q6H PRN PO MODERATE PAIN (4-6) 05/11/24 09:30 05/16/24 09:29 UNV Aspirin (Aspirin 81mg Chew Tab) 81 mg DAILY PO 05/11/24 09:00 06/10/24 08:59 UNV Atorvastatin Calcium (LIPItor 10MG) 10 mg DAILY PO 05/11/24 09:00 06/10/24 08:59 UNV Dextrose (D50w) 50 ml AD PRN IV HYPOGLYCEMIA PROTOCOL 05/11/24 09:00 06/10/24 08:59 UNV Diphenhydramine HCl (BENAdryl INJ) 25 mg Q6H PRN IV SEVERE ITCHING/RASH 05/11/24 08:30 06/10/24 08:29 Famotidine (Pepcid 20mg Vial) 20 mg BID PRN IV NAUSEA/VOMITING 05/11/24 08:30 05/11/24 08:36 DC Glucagon (Glucagon 1mg Kit) 1 mg AD PRN IM HYPOGLYCEMIA PROTOCOL 05/11/24 09:00 06/10/24 08:59 UNV Heparin Sodium (Porcine) (HEParin 5,000 UNIT VIAL) *calculation based on ACTUAL B... AD PRN IV HEPARIN PROTOCOL 05/11/24 09:00 06/10/24 08:59 05/11/24 08:17 6,000 UNIT Heparin Sodium/ Dextrose 250 ml @ 0 mls/hr Q6H IV 05/11/24 09:00 06/10/24 08:59 05/11/24 08:30 14 MLS/HR Hydralazine HCl (APRESOLine 20MG INJ) 10 mg Q6H PRN IV ADMINISTER FOR SBP > 160 05/11/24 08:00 06/10/24 07:59 Hydromorphone HCl (DiLAUDid 0.5MG INJ) 0.5 mg Q4H PRN IM SEVERE PAIN (7-10) 05/11/24 09:30 05/16/24 09:29 UNV Hydromorphone HCl (DiLAUDid 1MG INJ) 0.5 mg Q4H PRN IV SEVERE PAIN (7-10) 05/11/24 08:30 05/11/24 09:09 DC Insulin Human Regular (humuLIN R 100 UNIT/ML 3ML) INSULIN SLIDING SCAL... ACHS SQ 05/11/24 11:30 06/10/24 11:29 UNV Magnesium Sulfate 50 ml @ 0 mls/hr PROTOCOL PRN IV PROTOCOL 05/11/24 09:00 06/10/24 08:59 UNV Metoprolol Tartrate (loprESSOR) 25 mg ONCE PO 05/11/24 09:00 05/17/24 16:20 UNV Morphine Sulfate (morPHINE 2MG SYG) 2 mg Q4H PRN IV MODERATE PAIN (4-6) IF NPO 05/11/24 08:30 05/18/24 08:29 Nitroglycerin (Nitrostat) 0.4 mg AD PRN SL CHEST PAIN 05/11/24 06:00 06/10/24 05:59 05/11/24 06:02 0.4 MG Ondansetron HCl (zoFRAN 4MG INJ) 4 mg Q6H PRN IV NAUSEA/VOMITING 05/11/24 08:30 06/10/24 08:29 Potassium Chloride 100 ml @ 100 mls/hr AD PRN IV POTASSIUM PROTOCOL 05/11/24 09:00 06/10/24 08:59 UNV Potassium Chloride (K-Dur/Klor-Con 20meq) 20 meq AD PRN PO POTASSIUM PROTOCOL 05/11/24 09:00 06/10/24 08:59 UNV Potassium Chloride (KCl 10% Elixir 20meq/15ml) 20 meq AD PRN PO POTASSIUM PROTOCOL 05/11/24 09:00 06/10/24 08:59 UNV Sodium Chloride 1,000 ml @ 100 mls/hr Q10H IV 05/11/24 08:30 06/10/24 08:29 05/11/24 09:00 100 MLS/HR Ticagrelor (BRILinta) 90 mg ONCE PO 05/11/24 09:00 06/10/24 08:59 UNV Ticagrelor (BRILinta) 180 mg ONCE PO 05/11/24 08:30 06/10/24 08:29 05/11/24 08:58 180 MG DIAGNOSTICS / RADIOLOGY: [ ] ASSESSMENT: Chest pain concerning for acute coronary syndrome, POA Coronary artery disease vs VA POA chest pain and SOB HEART score 6, POA Uptrending troponin hypertensive poa Tobacco use disorder 1 ppd for 54 years h/o marijuana use PLAN: coronary artery disease vs VA POA chest pain and SOB poa Acute coronary syndrome -admit to PCU on telemetry -Start aspirin 81 mg Q 24 hours -Start atorvastatin 40 mg HS -Start Brilinta 90 mg Q 24 hours -Start heparin drip, per heparin protocol -start metoprolol 25 mg b.i.d. -we will order stat echocardiogram and follow up -cardiology consulted, appreciate recommendations -p.r.n. nitroglycerin for continued chest pain Hypretension poa - Start hydralazine 10mg prn q6h for SBP > 160 -we will monitor blood pressures and adjust as needed Tobacco use disorder, 1 PPD for 54 years h/o marijuana use - councelled regarding abstinence -Start nicotine patch Disposition: Pending Cardiology recommendations, possible left heart catheterization, improvement in clinical status ADVANCED CARE PLANNING 1. Which of the following were discussed? Hospice Care - Yes Therapeutic options - Yes Advance Directives - Yes-patient does not have any advanced directives in place at this time. Other discussions -patient wishes to remain a full code at this time. 2. Discussed with who? Patient 3. Voluntary nature of this service was explained to the patient? Yes 4. Amount of time spent - 16 minutes__ 5. Reviewed by Physician? (if this service was performed by NPP) Yes REYES PRUETT MD May 11, 2024 09:12 JANIA CRAWFORD MD May 11, 2024 10:36
[2024-05-11] MEDS: TICAGrelor 90 MG TABLET PO ONE (09:18)
[2024-05-11] MEDS: ASPIRIN 81MG CHEW TAB PO SCH (09:21)
[2024-05-11] MEDS: atorVAStatin 10 MG TABLET PO SCH (09:25)
[2024-05-11] MEDS: metoPROLOL tartRATE 25 MG TAB PO SCH (09:25)
[2024-05-11] MEDS ORDERED: hydroMORPHone 0.5 MG SYG (0.5MG/0.5ML) IM PRN (09:30)
--- NOTE | 2024-05-11 09:42 | NUR ---
DR GARZA MADE AWARE OF LAST TROPONIN LEVEL. PER MD KEEP PT NPO.
--- NOTE | 2024-05-11 10:45 | CONS ---
[facility] CARDIOLOGY CONSULTATION NOTE Date Patient Seen: May 11, 2024 Time of Visit: 10:43 Requesting Physician: Dr Estrada Reason for Consultation: chest pain History of Present Illness: Patient is a 68 year old male with smoking history who presented with chief complaint of chest pain. He reports onset of chest pain, waxing and waning, over the past few weeks. He was seen in the emergency department 2 days ago, admitted however left AMA. He presents today with recurrence of substernal chest pain described as tightness with radiation to the back and bilateral shoulders around 430 this AM, rated 10/10 intensity at its worst, now 4/10. It is associated with shortness of breath. Initial troponin negative, uptrended to 3k, most recently 22k. He is status post loading dose aspirin and ticagrelor and placed on heparin gtt. CTA chest negative for PE or Aortic pathology. Past Medical History: denies Past Surgical History: cholecystectomy Family History: denies family history of early coronary artery disease Social History: positive for smoking, marijuana use Current Meds: Current Medications Medications Dose Ordered Sig/Kenzie Start Time Stop Time Status Last Admin Nitroglycerin 0.4 mg AD PRN 05/11/24 06:00 06/10/24 05:59 05/11/24 06:02 Hydralazine HCl 10 mg Q6H PRN 05/11/24 08:00 06/10/24 07:59 Heparin Sodium (Porcine) *calculation based on ACTUAL B... AD PRN 05/11/24 09:00 06/10/24 08:59 05/11/24 08:17 Heparin Sodium/ Dextrose 250 ml @ 0 mls/hr Q6H 05/11/24 09:00 06/10/24 08:59 05/11/24 08:30 Diphenhydramine HCl 25 mg Q6H PRN 05/11/24 08:30 06/10/24 08:29 Ondansetron HCl 4 mg Q6H PRN 05/11/24 08:30 06/10/24 08:29 Morphine Sulfate 2 mg Q4H PRN 05/11/24 08:30 05/18/24 08:29 Sodium Chloride 1,000 ml @ 100 mls/hr Q10H 05/11/24 08:30 06/10/24 08:29 05/11/24 09:00 Insulin Human Regular INSULIN SLIDING SCAL... ACHS 05/11/24 11:30 06/10/24 11:29 Dextrose 50 ml AD PRN 05/11/24 09:00 06/10/24 08:59 Glucagon 1 mg AD PRN 05/11/24 09:00 06/10/24 08:59 Potassium Chloride 100 ml @ 100 mls/hr AD PRN 05/11/24 09:00 06/10/24 08:59 Potassium Chloride 20 meq AD PRN 05/11/24 09:00 06/10/24 08:59 Potassium Chloride 20 meq AD PRN 05/11/24 09:00 06/10/24 08:59 Magnesium Sulfate 50 ml @ 0 mls/hr PROTOCOL PRN 05/11/24 09:00 06/10/24 08:59 Aspirin 81 mg DAILY 05/11/24 09:00 06/10/24 08:59 05/11/24 09:21 Metoprolol Tartrate 25 mg ONCE 05/11/24 09:00 05/17/24 16:20 05/11/24 09:25 Acetaminophen/ Hydrocodone Bitart 1 tab Q6H PRN 05/11/24 09:30 05/16/24 09:29 Hydromorphone HCl 0.5 mg Q4H PRN 05/11/24 09:30 05/16/24 09:29 Ticagrelor 90 mg DAILY 05/12/24 09:00 05/14/24 16:20 Nicotine 21 mg DAILY 05/12/24 09:00 06/11/24 08:59 Atorvastatin Calcium 40 mg DAILY 05/12/24 09:00 06/11/24 08:59 Review of Systems: CONST: [No fever, fatigue, or weight changes.] EYES: [No recent vision problems.] ENT: [No congestion, ear pain, or sore throat.] C/V: [reports chest pain, shortness of breath. RESP: [No cough, congestion, wheezing or shortness of breath.] GI: [No abdominal pain, nausea, vomiting, constipation, or diarrhea.] SKIN: [No rash.] NEURO: [No headache, focal numbness or weakness, dizziness, or seizures.] PSYCH: [No depression or anxiety.] HEME: [No abnormal bruising or bleeding.] LYMPH: [No swollen glands.] Physical Examination: GENERAL: [No acute distress.] HEAD: [Normal with no signs of head trauma.] NECK: [ Normal carotid upstrokes without bruits.] LUNGS: [Clear breath sounds bilaterally. No wheezes, or rhonchi.] HEART: [Normal rate and rhythm. Normal S1 and S2 without murmurs, gallop or rub.] VASC: [Peripheral pulses +2 bilaterally.] ABD: [soft, nontender, nondistended EXT: [No clubbing, cyanosis or edema.] SKIN: [No rashes or lesions noted.] NEURO: [Awake, alert, and oriented x3. No focal sensory or strength deficits noted.] Vital Signs (last 8hr) Date Time Temp Pulse Resp B/P (MAP) Pulse Ox O2 Delivery O2 Flow Rate FiO2 05/11/24 10:26 97.7 80 16 140/88 97 Room Air* 0 05/11/24 09:01 85 05/11/24 07:27 70 16 163/94 98 Room Air* 0 05/11/24 05:57 97.9 80 18 117/65 99 Room Air* 0 05/11/24 05:33 97.5 75 24 165/87 99 Room Air Laboratory: [ ] Hematology Labs: Test 05/11/24 05:40 Range/Units White Blood Count 13.5 H 4.8-10.8 K/uL Red Blood Count 5.99 4.50-6.20 MIL/uL Hemoglobin 17.9 14.0-18.0 g/dL Hematocrit 53.5 42-54 % Mean Corpuscular Volume 89.3 79-99 fL Mean Corpuscular Hemoglobin 29.9 27.0-33.0 pg Mean Corpuscular Hemoglobin Concent 33.5 32.0-36.0 g/dL Red Cell Distribution Width 14.0 11.0-15.5 % Platelet Count 311 130-400 K/uL Mean Platelet Volume 9.1 7.5-10.5 fL Immature Granulocyte % (Auto) 0.3 0-1 % Neutrophils (%) (Auto) 56.6 40.0-77.0 % Lymphocytes (%) (Auto) 25.6 21.0-51.0 % Monocytes (%) (Auto) 10.9 3.0-13.0 % Eosinophils (%) (Auto) 5.3 0.0-8.0 % Basophils (%) (Auto) 1.3 0.0-5.0 % Neutrophils # (Auto) 7.7 1.8-7.7 K/uL Lymphocytes # (Auto) 3.5 1.0-4.8 K/uL Monocytes # (Auto) 1.5 H 0.1-1.0 K/uL Eosinophils # (Auto) 0.72 H 0.00-0.70 K/uL Basophils # (Auto) 0.17 0.00-0.20 K/uL Absolute Immature Granulocyte (auto 0.04 0-1 K/uL Nucleated Red Blood Cells 0.0 0.0-0.19 % Chemistry Labs: Test 05/11/24 10:06 05/11/24 05:40 Range/Units Troponin I High Sensitivity 00119 *H 4-75 ng/L Sodium Level 140 136-145 mmol/L Potassium Level 4.0 3.5-5.1 mmol/L Chloride Level 104 101-111 mmol/L Carbon Dioxide Level 25 21-32 mmol/L Blood Urea Nitrogen 16 7-18 mg/dL Creatinine 1.1 0.5-1.3 mg/dL Glomerular Filtration Rate Calc 74 >90 mL/min Random Glucose 119 H 70-105 mg/dL Total Calcium 9.2 8.5-10.1 mg/dL Magnesium Level 2.20 1.80-2.40 mg/dL Total Creatine Kinase 216 21-232 U/L B-Type Natriuretic Peptide 11 0-100 pg/mL Coagulation Labs: Test 05/11/24 08:26 05/11/24 05:40 Range/Units Activated Partial Thromboplast Time 30.9 26.3-35.5 SEC Prothrombin Time 10.9 9.6-11.6 SEC Prothromb Time International Ratio 1.01 0.85-1.15 Diagnostics / Radiology: IMPRESSION: 1. Mild emphysematous changes in both lungs. 2. No CT evidence of pulmonary embolism or aortic dissection. CT was performed with one or more following dose reduction techniques: automated exposure control, adjustment of the mA and kv according to patient's size, or use of a iterative reconstruction technique. DICTATED BY: MARGY WILCOX MD DATE: 05/11/24812 Assessment: Chest pain NSTEMI Tobacco use Plan: Continue with ACS protocol with aspirin, ticagrelor, IV heparin, beta blockers Will proceed with coronary angiography with possible percutaneous intervention due to elevated troponins and persistent chest pain DEBORAH GARZA DO May 11, 2024 10:45
--- NOTE | 2024-05-11 10:45 | NUR ---
RECEIVED PATIENT FROM ER VIA STRETCHER AFTER RECEIVING REPORT FROM FLORECITA KELSEY. CURRENTLY C/O CHEST PAIN, 3/10 ON PAIN SCALE. CURRENTLY ON HEPARIN DRIP AT 17/UNITS/KG/HR. NPO STATUS PENDING TO BE SEEN BY DR. GARZA FOR POSSIBLE CARDIAC CATHETERIZATION.
--- NOTE | 2024-05-11 10:49 | HMCSR ---
APPROVED REPORT EXAM: Two-dimensional and M-mode echocardiogram with Doppler and color Doppler. INDICATION ICD: Chest Pain 2D Dimensions RVDd3.3 cmLVEF(%)31.4 (>50%)LVED Vol(simp.)65.9 mL IVSd0.9 (0.7-1.1cm)FS(%)15 %LVES Vol(simp.)32.3 mL LVDd4.1 (3.8-5.6cm)LA (2D)4.0 (1.6-4.0cm)LVEF(%, simp.)51 % PWd1.1 (0.7-1.1cm)Ao Root(2D)3.4 (2.0-3.7cm)LA ESV INDEX (4CH)10.30 mL/m2 IVSs1.0 cmLVOT diam2.2 (1.8-2.4cm)LA ESV INDEX (2CH)13.70 mL/m2 LVDs3.5 (2.5-4.0cm)IVC diam1.9 cmLA ESV INDEX (BP)12.40 mL/m2 PWs1.1 cm M-Mode Dimensions EPSS1.1 cm LA (MM)3.4 (1.6-4.0cm) Ao Root(MM)3.7 (2.0-3.7cm) Aortic Valve AoV VTI0.2 mAo Mean GR2.0 mmHgLVOT VTI0.18 m ALONA (VMAX)3.0 cm2AVA (VTI) 3.0 cm2 Mitral Valve MV E Vmax69.8 cm/sDECEL Hvhw139 ms MV A Vmax76.6 cm/sP 1/2 T69 ms E/A ratio0.9MVA (PHT)3.2 cm2 TDI E/E' Fcavzq60.3E/E' Duznutk34.4 Medial E' Peak V6.20 cm/sLateral E' Peak V5.20 cm/s Left Ventricle The left ventricle is normal size. Hypokinesis of the lateral wall. There is normal left ventricular wall thickness. LVEF is 50-55%. The left ventricular diastolic function is normal. Right Ventricle The right ventricle is normal size. Right ventricular systolic function is mildly reduced. Atria The left atrium size is normal. The right atrium size is normal. Aortic Valve The aortic valve is normal in structure. No aortic regurgitation is present. There is no aortic valvu lar stenosis. Mitral Valve The mitral valve is normal in structure. There is no mitral valve regurgitation noted. There is no mi tral valve stenosis. Tricuspid Valve The tricuspid valve is normal in structure. There is no tricuspid valve regurgitation noted. Pulmonic Valve The pulmonary valve is normal in structure. There is no pulmonic valvular regurgitation. Great Vessels The aortic root is normal in size. The IVC is normal in size and collapses >50% with inspiration. Pericardium There is no pericardial effusion. Other Information Quality : FairRhythm : NSR Technically limited study due to smoking. Conclusion LVEF is 50-55%. Hypokinesis of the lateral wall. Right ventricular systolic function is mildly reduced.
--- NOTE | 2024-05-11 10:59 | NUR ---
DR. GARZA IN ROOM, UPDATE GIVEN. SHE SPOKE WITH PATIENT AND HIS DAUGHTER, REESE PEREYRA ABOUT CARDIAC CATHETERIZATION. VERBALIZED UNDERSTANDING.
--- NOTE | 2024-05-11 11:06 | NUR ---
CATH TEAM HAD BEEN NOTIFIED OF [facility] PROCEDURE ON THEIR WAY IN . ROWDY BERNABE
[2024-05-11] MEDS: INSULIN humuLIN R 100 UNIT/ML 3ML SQ SCH (11:30)
[2024-05-11] MEDS ORDERED: LIDOCAINE HCL 400MG/20ML VIAL ONE (11:39)
[2024-05-11] MEDS ORDERED: HEParin-NS 1,000 UNIT/500 ML 1,000 ML IV ONE (11:39)
[2024-05-11] MEDS ORDERED: IOHEXOL 350 MG/ML 100ML INFUS..BTL IV ONE (11:39)
[2024-05-11] MEDS ORDERED: HEParin 10,000 UNIT/10ML (1,000 UNIT/ML) VIAL ONE (11:39)
[2024-05-11] MEDS ORDERED: NITROGLYCERIN 50MG VIAL ONE (11:40)
[2024-05-11] MEDS ORDERED: VERAPAMIL HCL 2.5 MG/ML VIAL ONE (11:43)
--- NOTE | 2024-05-11 11:50 | NUR ---
TAKEN TO [employer] HELPER VIA BED BY FLORECITA LEIGH. PATIENT CONTINUES REPORTING CHEST PAIN OF 3/10 ON PAIN SCALE.
[2024-05-11] MEDS ORDERED: FENTanyl CITRate PF 50 MCG/1 ML 2ML VIAL ONE (12:00)
[2024-05-11] MEDS ORDERED: MIDAZOLAM HCL 1 MG/ML 2ML VIAL ONE (12:00)
--- NOTE | 2024-05-11 13:08 | PRN ---
Cath Procedure Report CATH PROCEDURE REPORT CARDIAC CATHETERIZATION REPORT Date of Service: May 11, 2024 PROCEDURE: Left heart catheterization with selective right and left coronary angiography Percutaneous intervention to OM1 with placement of [id number] [employer] [place] drug- eluting stent. COATING MIXER: Deborah Quintero DO INDICATION: NSTEMI DESCRIPTION OF PROCEDURE: After informed consent was obtained, patient brought back to the lab suite fasting state. Peripheral heparin infusion was discontinued. Right wrist was prepped and draped sterile fashion. Time-out was performed. Patient report 2/10 severity chest pain pre-procedurally. Brief run nonsustained ventricular tachycardia was noted prior to start of procedure, resolved with patient cough. Patient was administered conscious sedation independent qualify union laborer RN under my direct supervision and no complications were observed. Right radial artery was accessed on 1st attempt with use of ultrasound guidance after 1% lidocaine was used of the subcutaneous tissues. Six Togolese hydrophilic short sheath was placed followed by basal dilatory cocktail of 2.5 mg of verapamil and 200 mcg of nitroglycerin. Over an 035 J-wire, a six Togolese JR4 catheter was advanced into the ascending aorta, used to cross the aortic valve into the left ventricle for LVEDP and pullback across the aortic valve. ACT was obtained, found to be subtherapeutic and 4000 units heparin was given via peripheral IV. The JR4 catheter was then used to selectively engage the right coronary artery and multiple angiographic views were taken. The catheter was then exchanged over the wire for a six Togolese JL 3.5 guide catheter. This was used to selectively engage the left coronary artery and angiographic views were taken. Then, we proceeded with intervention to the 90% focal stenosis of the mid OM1. 0143 cm run-through wire was advanced into the distal OM1. Pre dilatation was of the lesion 84 a 2.5 x 10 mm balloon deployed at nominal pressures followed by placement of an [employer] [place] 2.75 x 15 mm drug-eluting stent. This revealed small step-up and step-down at the level of the stent, no dissection and brisk [place] three flow distally. All catheters wires were then removed and hemostasis achieved right radial artery with the use of vascular band. Patient tolerated the procedure well without any immediate complications. Patient chest pain-free postprocedure FINDINGS: Left main: Angiographically, bifurcating into LAD left circumflex Left anterior descending: Mid 20 30% stenosis. The LAD is otherwise angiographically normal as it extends to wraps apex. There is a large caliber 1st diagonal branch measuring 2.25 to 2.5 mm proximally, bifurcating distally into a smaller caliber superior, larger caliber inferior branch. Left circumflex: Main body left circumflex angiographically free of disease. There is a large caliber OM1 branch with a 90% focal stenosis in the midportion. This lesion was stented. The OM1 branch bifurcates distally as it extends to wrap across the lateral wall. The OM2 is small caliber. Right coronary artery: Proximal 30% stenosis, distal 30% stenosis. The RPDA is angiographically free of disease. The posterolateral extension gives off three large caliber posterolateral branches and are angiographically normal. There is an atrial branch extending from the posterolateral extension and is angiographically free of disease. HEMODYNAMICS: Opening aortic pressure 118/67, mean of 87 mmHg Left ventricle 148 mmHg LVEDP 17 mmHg No gradient on pullback across the aortic valve. CONTRAST: 100 cc SUMMARY: 90% mid OM-1 stenosis status post percutaneous intervention with placement of [id number] [employer] [place] drug-eluting stent. DEBORAH QUINTERO DO May 11, 2024 13:08
--- NOTE | 2024-05-11 13:35 | NUR ---
BACK FROM [facility]. STABLE. S/P STENT TO OM. CURRENTLY DENIES CHEST PAIN OR SHORTNESS OF BREATH. TELEMETRY READING SR HR 70-74. RIGHT RADIAL BAND ON WITH 9 ML'S OF AIR. WILL CONTINUE TO MONITOR.
--- NOTE | 2024-05-11 15:35 | NUR ---
RIGHT RADIAL BAND REMOVED, TOLERATED WELL. RADIAL PULSE STRONG. RIGHT HAND AND FINGERS WARM TO TOUCH. APPLIED 2X2 GAUZE AND SECURE WITH CLEAR OPSITE. WILL CONTINUE TO MONITOR.
--- NOTE | 2024-05-11 16:30 | NUR ---
REFUSED GLUCOMETER, HE STATES HE IS NOT A DIABETIC.
[2024-05-11] MEDS: HYDROcodone/APAP 5/325 1 TAB TABLET PO PRN (19:35)
--- NOTE | 2024-05-11 21:00 | NUR ---
PT LAYING IN BED WITH THE HEAD OF THE BED ELEVATED.PT DOES NOT APPEAR TO BE IN ANY DISTRESS.INSTRUCTED PT TO USE THE CALL LIGHT FOR ANY ASSISTANCE WHEN NEEDED.PT UNDERSTOOD BED IS LOW AND LOCKED CALL LIGHT WITHIN REACH .
[2024-05-12 03:36] LABS: BASOPHILS # (AUTO) 0.12 K/uL (0.00-0.20); BASOPHILS % (AUTO) 0.9 % (0.0-5.0); EOSINOPHILS # (AUTO) 0.35 K/uL (0.00-0.70); EOSINOPHILS % (AUTO) 2.6 % (0.0-8.0); IMMATURE GRANULOCYTE ABSOLUTE 0.03 K/uL (0-1); LYMPHOCYTES # (AUTO) 2.5 K/uL (1.0-4.8); LYMPHOCYTES % (AUTO) 18.2 % (21.0-51.0); MEAN CORPUSCULAR HEMOGLOBIN 29.7 pg (27.0-33.0); MEAN CORPUSCULAR HGB CONC 33.1 g/dL (32.0-36.0); MEAN CORPUSCULAR VOLUME 89.7 fL (79-99); MONOCYTES # (AUTO) 1.5 K/uL (0.1-1.0); MONOCYTES % (AUTO) 11.3 % (3.0-13.0); NEUTROPHILS # (AUTO) 9.1 K/uL (1.8-7.7); NEUTROPHILS % (AUTO) 66.8 % (40.0-77.0); PLATELET COUNT (AUTO) 272 K/uL (130-400); RED BLOOD CELL COUNT(AUTO) 5.35 MIL/uL (4.50-6.20); WHITE BLOOD COUNT (AUTO) 13.6 K/uL (4.8-10.8)
[2024-05-12 03:59] LABS: ALBUMIN 3.2 g/dL (3.5-5.0); BILIRUBIN,TOTAL 0.5 mg/dL (0.2-1.0); CREATININE 1.2 mg/dL (0.5-1.3); POTASSIUM 4.1 mmol/L (3.5-5.1); TOTAL PROTEIN, SERUM 6.9 g/dL (6.0-8.3)
[2024-05-12 04:52] VITALS: BP 136/79; PULSE 83; RESP 18; TEMP 98.2
[2024-05-12] MEDS: metOPROLol sucCINATE 25 MG TAB.SR.24H PO SCH (05:21)
--- NOTE | 2024-05-12 07:16 | NUR ---
PT WAS OFFERED TO SHOWER,PT REFUSED STATES HE WILL SHOWER WHEN HE GETS HOME .
[2024-05-12 07:30] VITALS: O2SAT 95
--- NOTE | 2024-05-12 07:30 | NUR ---
EXTREMELY ANXIOUS AND WANTING TO GO HOME. INFORMED PATIENT THAT DR. AVILA AND DR. LAINEZ WILL BE ROUNDING TODAY AND WILL BE DISMISSING HIM HOME. PATIENT STATES HE WILL NOT "WAIT AROUND ALL DAY" FOR THE DOCTORS. NOTIFIED DR. AVILA AND DR. GARZA ABOUT PATIENT WANTING TO LEAVE AMA. BOTH PHYSICIANS ASKED ME TO ATTEMPT TO HAVE PATIENT WAIT UNTIL THEY ROUND.
--- NOTE | 2024-05-12 07:50 | NUR ---
PATIENT REMOVED TELEMETRY PACK AND STATES HE IS LEAVING. HE STATED " I FEEL BETTER, I GOT MY STENT AND CAN GO NOW". REMOVED SALINE LOCK FROM RIGHT ARM, IV SITE WITHOUT REDNESS NOTED. DENIES CHEST PAIN. PATIENT AMBULATED PER SELF DOWN TO TOM, HIS DAUGHTER, REESE TO PICK HIM UP.
--- NOTE | 2024-05-12 08:25 | NUR ---
RADHA LEMA AND DR. AVILA IN TO ROUND . INFORMED THEM THAT PATIENT LEFT AMA AT 0750.
[2024-05-12] MEDS ORDERED: TICAGrelor 90 MG TABLET PO SCH (09:00)
[2024-05-12] MEDS ORDERED: atorVAStatin 40 MG TABLET PO SCH (09:00)
[2024-05-12] MEDS ORDERED: NICOTINE 21 MG/ 24 HR PATCH TD SCH (09:00)
--- NOTE | 2024-05-12 09:29 | DS ---
Discharge Summary Hospital Course Summary: pt admitted with chest pain and ruled in for acute [place]. Received 1 coronary stent. He left against medical advice on hospital day#2. called in rx's for baby asa 81 mg po qd, plavix 75 mg po qd #30, metoprolol 25 mg po bid, and atorvastatin 40 mg po qd. Authorization Rep(s): cardiology Procedure(s): Left heart catheterization Assessment/Plan: ASSESSMENT: Chest pain concerning for acute coronary syndrome, POA Coronary artery disease vs [place] POA chest pain and SOB HEART score 6, POA Uptrending troponin hypertensive poa Tobacco use disorder 1 ppd for 54 years h/o marijuana use PLAN: coronary artery disease vs [place] POA chest pain and SOB poa Acute coronary syndrome -admit to PCU on telemetry -Start aspirin 81 mg Q 24 hours -Start atorvastatin 40 mg HS -Start Brilinta 90 mg Q 24 hours -Start heparin drip, per heparin protocol -start metoprolol 25 mg b.i.d. -we will order stat echocardiogram and follow up -cardiology consulted, appreciate recommendations -p.r.n. nitroglycerin for continued chest pain Hypretension poa - Start hydralazine 10mg prn q6h for SBP > 160 -we will monitor blood pressures and adjust as needed Tobacco use disorder, 1 PPD for 54 years h/o marijuana use - councelled regarding abstinence -Start nicotine patch Disposition: Pending Cardiology recommendations, possible left heart catheterization, improvement in clinical status ADVANCED CARE PLANNING 1. Which of the following were discussed? Hospice Care - Yes Therapeutic options - Yes Advance Directives - Yes-patient does not have any advanced directives in place at this time. Other discussions -patient wishes to remain a full code at this time. 2. Discussed with who? Patient 3. Voluntary nature of this service was explained to the patient? Yes 4. Amount of time spent - 16 minutes__ 5. Reviewed by Physician? (if this service was performed by NPP) Yes Time spent arranging discharge: 1-30 minutes KINSEY AVILA MD May 12, 2024 09:29
--- NOTE | 2024-05-12 11:14 | NUR ---
CALLED PATIENT AT [phone] THAT [address] AVILA HAD PLACED PRESCRIPTIONS AND FOR HIM TO GO PICK THEM UP AT HIS PREFERRED PHARMACY, [facility]. PATIENT VERBALIZED UNDERSTANDING.
--- NOTE | 2024-05-12 19:53 | EKG ---
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1955 Requested By: JANIA CRAWFORD Order Number: [id number] Reading MD: Tangela Quintero Measurements Intervals [place] Rate: 66 P: 30 [place]: 168 QRS: 91 QRSD: 80 T: 121 QT: 384 QTc: 402 Interpretive Statements Sinus rhythm Low voltage, extremity leads Posterior infarct, old Nonspecific T abnormalities, lateral leads Compared to ECG 05/11/2024 05:26:05 Myocardial infarct finding now present T-wave abnormality now present ST (T wave) deviation no longer present Electronically Signed On 05-13-2024 11:33:37 SANDBLAST OR SHOTBLAST EQUIPMENT TENDER by Tangela Quintero Please click the below link to view image of tracing.
== END 2024-05-12 07:55 | disposition left against medical advice (07) | DRG 321 ==
LOC: EDH 05:32 → EDHIP 08:16 → 2DH 10:35
PROVIDERS: ADMIT Internal Medicine; ATTEND Internal Medicine
PROC: 027034Z Dilation of Coronary Artery, One Artery with Drug-eluting Intraluminal Device, Percutaneous Approach (ICD-10-PCS; principal; 2024-05-11)
PROC: 4A023N7 Measurement of Cardiac Sampling and Pressure, Left Heart, Percutaneous Approach (ICD-10-PCS; 2024-05-11)
PROC: B2111ZZ Fluoroscopy of Multiple Coronary Arteries using Low Osmolar Contrast (ICD-10-PCS; 2024-05-11)
DX: I25.10 Atherosclerotic heart disease of native coronary artery without angina pectoris (principal); I21.4 Non-ST elevation (NSTEMI) myocardial infarction; F17.200 Nicotine dependence, unspecified, uncomplicated; Z53.29 Procedure and treatment not carried out because of patient's decision for other reasons; Z95.5 Presence of coronary angioplasty implant and graft; Z79.899 Other long term (current) drug therapy; Z79.82 Long term (current) use of aspirin
CPT/HCPCS: 36415; 71045; 71275; 80048; 80053; 82550; 82948; 83735; 83880; 84484; 85025; 85347; 85610; 85730; 93005; 93306; 93458; 96374; 96375; 99156; 99157; 99285; C1769; C1887; C9600; G0378; J1644; J2250; J2270; J2405; J3010; J3490; J7030; Q9967; A4649; C1725; C1874; C1894; Q9965

== ENCOUNTER 2024-06-21 18:15 | Emergency (ER) | payer OTHER ==
[~2024-06-21] VITALS: Ht 177.8 cm; Wt 84.4 kg
[2024-06-21 18:18] VITALS: BP 141/84; PULSE 77; RESP 18; TEMP 97.9
--- NOTE | 2024-06-21 18:47 | ERN ---
ED Note History of Present Illness Stated Complaint: BLOODY STOOL Chief Complaint: Bloody Stool Time Seen by MD: 18:16 Time Seen by Midlevel: 18:16 Dictation: The patient is a 68-year-old male with a history of CAD status post cardiac stent on April 2024, cholecystectomy who presents to the emergency department with complaints of two episodes of dark red stools onset 2:00 p.m. today. Patient denies any abdominal pain, nausea or vomiting. Patient is unsure of his medications but was placed on Brilinta and aspirin for stent. Allergies: Coded Allergies: No Known Drug Allergies (Unverified Allergy, Unknown, 05/07/24) Past Medical History Past Medical History: Other Additional Past Medical Hx: PINCHED NERVE IN NECK Surgical History: Cholecystectomy RN Note Reviewed/Agreed w/PFSH: Yes Review of System Dictation Constitutional: Negative for fever,chills, and weight loss Eyes: Negative for injury, pain,redness, and discharge ENT: Negative for injury,pain or swelling Cardiovascular: Negative for chest pain, palpitations, and edema Respiratory: Negative for shortness of breath, cough, and wheezing, Abdomen/GI: Negative for abdominal pain, nausea, vomiting, diarrhea, and constipation Back: Negative for injury and pain : Negative for injury, and discharge positive for bloody stools MS/Extremity: Negative for injury and deformity Skin: Negative for rash, and discoloration Neuro: Negative for headache, weakness, numbness, tingling, and seizure Psych: Negative for suicide ideation, homicidal ideation, and hallucinations Initial Vital Sign VS Vital Signs Date Time Temp Pulse Resp B/P (MAP) Pulse Ox O2 Delivery O2 Flow Rate FiO2 06/21/24 18:18 97.9 77 18 141/84 97 Room Air 0 Physical Exam Dictation Vital Signs reviewed General Appearance: Alert, oriented x 3, no acute distress, well developed, nourished. Head and Face: non-traumatic. Eyes: PERRL, pink conjunctivas, eyelid no trauma, anterior chamber with arcus senilis. Ears: Pinnas intact and no signs of trauma or erythema ear canals clear and no discharge TM no erythema Nose: No discharge, no bleeding. Oropharynx: Mouth normal, tongue pink. pharynx clear,no erythema, tonsils no exudates, no abscesses noted, mucous membrane moist Neck: Supple, non-tender, no thyromegaly, no masses, no JVD, no bruits Breast:Deferred Chest:No tenderness, no crepitus, no paradoxical movement, no retractions Lungs:Clear, well-ventilated, symmetric, no rales, no wheezing, no rhonchi, no stridor, good breath sounds bilaterally Heart: Regular rate, regular rhythm, no murmur, no gallops Vascular: no peripheral edema, Abdomen: Soft, positive bowel sounds, nondistended, no guarding, nontender, no rebound, no masses no hepatomegaly, no splenomegaly, no Estrada's sign, no hernias. Rectal: Refused Genital: Deferred Neurological: Normal speech, motor function intact, sensory function intact Musculoskeletal: Neck nontender, full range of motion, back nontender, full range of motion, Extremities: nontender, full range of motion Skin: Color pink, dry, no turgor, no rash, no lacerations, no abrasions, no contusions. Lymphatic: Deferred Results (Laboratory/Radiology) Laboratory/Radiology Laboratory Tests Test 06/21/24 20:09 White Blood Count 20.5 K/uL (4.8-10.8) H Red Blood Count 5.09 MIL/uL (4.50-6.20) Hemoglobin 15.2 g/dL (14.0-18.0) Hematocrit 46.8 % (42-54) Mean Corpuscular Volume 91.9 fL (79-99) Mean Corpuscular Hemoglobin 29.9 pg (27.0-33.0) Mean Corpuscular Hemoglobin Concent 32.5 g/dL (32.0-36.0) Red Cell Distribution Width 14.1 % (11.0-15.5) Platelet Count 354 K/uL (130-400) Mean Platelet Volume 9.1 fL (7.5-10.5) Immature Granulocyte % (Auto) 0.6 % (0-1) Neutrophils (%) (Auto) 73.0 % (40.0-77.0) Lymphocytes (%) (Auto) 14.4 % (21.0-51.0) L Monocytes (%) (Auto) 8.4 % (3.0-13.0) Eosinophils (%) (Auto) 2.7 % (0.0-8.0) Basophils (%) (Auto) 0.9 % (0.0-5.0) Neutrophils # (Auto) 14.9 K/uL (1.8-7.7) H Lymphocytes # (Auto) 3.0 K/uL (1.0-4.8) Monocytes # (Auto) 1.7 K/uL (0.1-1.0) H Eosinophils # (Auto) 0.55 K/uL (0.00-0.70) Basophils # (Auto) 0.19 K/uL (0.00-0.20) Absolute Immature Granulocyte (auto 0.12 K/uL (0-1) Nucleated Red Blood Cells 0.0 % (0.0-0.19) Prothrombin Time 10.4 SEC (9.6-11.6) Prothromb Time International Ratio <= 0.93 (0.85-1.15) Activated Partial Thromboplast Time 27.8 SEC (26.3-35.5) Sodium Level 139 mmol/L (136-145) Potassium Level 4.5 mmol/L (3.5-5.1) Chloride Level 104 mmol/L (101-111) Carbon Dioxide Level 28 mmol/L (21-32) Blood Urea Nitrogen 23 mg/dL (7-18) H Creatinine 1.1 mg/dL (0.5-1.3) Glomerular Filtration Rate Calc 74 mL/min (>90) Random Glucose 102 mg/dL (70-105) Total Calcium 9.1 mg/dL (8.5-10.1) Troponin I High Sensitivity 28 ng/L (4-75) Labs Reviewed?: Yes EKG: (+) rhythm EKG Comment: EKG 06/21/20241955 ventricular rate 76, regular rate and rhythm, normal sinus rhythm, no STEMI ED Course ED Course Orders Procedure Category Date Status Time Cbc With Differential LAB 06/21/24 Complete 18:30 Occult Blood Stool LAB 06/21/24 Logged Single Only 18:30 Basic Metabolic Panel LAB 06/21/24 Complete 18:30 Pt And Ptt LAB 06/21/24 Complete 18:30 Pantoprazole 40mg Inj PHA 06/21/24 In Process (Protonix 40mg Inj 19:00 12 Lead Ekg Tracing- EKG 06/21/24 Logged Technical 18:52 Troponin I High LAB 06/21/24 Complete Sensitivity 18:52 Chest 1vw RAD 06/21/24 Resulted 18:52 Urinalysis Profile LAB 06/21/24 Logged 21:05 Drug Screen Urine LAB 06/21/24 Logged 21:05 Current Medications Medications (Trade) Dose Ordered Sig/Kenzie Route PRN Reason Start Time Stop Time Status Last Admin Dose Admin Pantoprazole Sodium (PROTonix 40MG INJ) 80 mg ONCE IVP 06/21/24 19:00 06/21/24 23:59 Vital Signs Date Time Temp Pulse Resp B/P (MAP) Pulse Ox O2 Delivery O2 Flow Rate FiO2 06/21/24 18:18 97.9 77 18 141/84 97 Room Air 0 Medical Decision Making MDM The patient is a 68-year-old male with a history of CAD status post cardiac stent on April 2024, cholecystectomy who presents to the emergency department with complaints of two episodes of dark red stools onset 2:00 p.m. today. Patient denies any abdominal pain, nausea or vomiting. Patient is unsure of his medications but was placed on Brilinta and aspirin for stent. Differential diagnosis: GI bleed, anemia, dehydration, electrolyte, hemorrhoids Patient eloped from ER DX & DISP Disposition: AMA Departure Condition: Stable Referrals: JEWELL JERRY MD (PCP) SAHIL YUNG Jun 21, 2024 18:47
[2024-06-21] MEDS ORDERED: PANTOPrazole 40 MG/VIAL IVP SCH (19:00)
--- NOTE | 2024-06-21 19:17 | HMCIMG ---
PORTABLE CHEST RADIOGRAPH INDICATION: cp COMPARISON: 05/11/2024 FINDINGS: Heart size is normal. The pulmonary vascularity and orestes appear normal. No abnormal pulmonary parenchymal opacity or consolidation identified. No significant pleural effusion noted. No pneumothorax detected. IMPRESSION: No radiographic evidence for any acute cardiopulmonary process.
[2024-06-21 20:24] LABS: BASOPHILS # (AUTO) 0.19 K/uL (0.00-0.20); BASOPHILS % (AUTO) 0.9 % (0.0-5.0); EOSINOPHILS # (AUTO) 0.55 K/uL (0.00-0.70); EOSINOPHILS % (AUTO) 2.7 % (0.0-8.0); HEMATOCRIT 46.8 % (42-54); IMMATURE GRANULOCYTE ABSOLUTE 0.12 K/uL (0-1); LYMPHOCYTES % (AUTO) 14.4 % (21.0-51.0); MEAN CORPUSCULAR HEMOGLOBIN 29.9 pg (27.0-33.0); MEAN CORPUSCULAR HGB CONC 32.5 g/dL (32.0-36.0); MEAN CORPUSCULAR VOLUME 91.9 fL (79-99); MONOCYTES # (AUTO) 1.7 K/uL (0.1-1.0); MONOCYTES % (AUTO) 8.4 % (3.0-13.0); NEUTROPHILS # (AUTO) 14.9 K/uL (1.8-7.7); PLATELET COUNT (AUTO) 354 K/uL (130-400); RED BLOOD CELL COUNT(AUTO) 5.09 MIL/uL (4.50-6.20); RED CELL DISTRIBUTION WIDTH 14.1 % (11.0-15.5); WHITE BLOOD COUNT (AUTO) 20.5 K/uL (4.8-10.8)
[2024-06-21 20:35] LABS: CREATININE 1.1 mg/dL (0.5-1.3); INR <= 0.93 (0.85-1.15); POTASSIUM 4.5 mmol/L (3.5-5.1); PROTHROMBIN TIME 10.4 SEC (9.6-11.6)
[2024-06-21 20:36] LABS: PARTIAL THROMBOPLASTIN TIME 27.8 SEC (26.3-35.5)
--- NOTE | 2024-06-21 21:21 | NUR ---
ASKED FOR A URINE SAMPLE AT THIS TIME. GIVEN CONTAINER.
--- NOTE | 2024-06-21 21:38 | NUR ---
PATIENT CALLED AND NOT PRESENT IN ER WAITING.
--- NOTE | 2024-06-22 06:19 | EKG ---
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
== END 2024-06-21 22:11 | disposition left against medical advice (07) ==
LOC: EDH 18:15
DX: K92.1 Melena (principal); Z90.49 Acquired absence of other specified parts of digestive tract
CPT/HCPCS: 36415; 71045; 80048; 84484; 85025; 85610; 85730; 93005; 99285